=== PATIENT | female | born 1940 | race Caucasian/White ===

== ENCOUNTER 2019-09-08 07:36 | Emergency (ER) | payer MEDICARE, OTHER ==
[2019-09-08] MEDS: EPINEPHrine 1:10,000 1 MG/10 ML Syringe IVPUSH SCH ×3 (08:19→08:26)
--- NOTE | 2019-09-08 08:49 | EDM.PDOC ---
ED HPI GENERAL MEDICAL PROBLEM - General Chief Complaint: CPR in Progress Stated Complaint: FALL Time Seen by Provider: 09/08/19 08:14 Source of Information: Reports: EMS, EMS Notes Reviewed History Limitations: Reports: Other - History of Present Illness INITIAL COMMENTS - FREE TEXT/NARRATIVE: This patient presents to the ED via EMS with CPR in progress. On DOUG with Ulices airway in place. Call to EMS was for fall. No other information available. Onset: Today, Sudden ED ROS GENERAL - Review of Systems Review Of Systems: Unable To Obtain (CPR in progress) Reason Not Obtained: CPR in process ED EXAM, CPR - Physical Exam Exam: See Below Limited By: Unresponsive Eye Exam: Bilateral Eye: Abnormal Pupil (fixed, dilated) Ears: Normal External Exam, Normal Canal, Normal TMs Nose: Normal Inspection, Normal Mucosa, No Blood Throat/Mouth: Normal Inspection, Other (Ulices airway in place) Respiratory Chest: Other (bag-airway ventilations) Cardiovascular: CPR In Progress GI/Abdominal Exam: Soft, No Organomegaly, Distended, Other (absent bowel sounds) Extremities: Normal Inspection Skin Exam: Warm, Dry, Intact, Cool, Cyanosis, Mottled Course - Orders/Labs/Meds Labs: Laboratory Tests 09/08/19 09/08/19 Range/Units 08:32 08:32 WBC 11.2 H (4.0-11.0) K/uL RBC 3.96 (3.80-5.80) M/uL Hgb 12.2 (11.5-16.5) g/dL Hct 37.5 (37.0-47.0) % MCV 95 (76-96) fL MCH 30.8 (27.0-32.0) pg MCHC 32.5 (31.0-35.0) g/dL RDW 13.6 (11.0-16.0) % Plt Count 132 L (150-500) K/uL MPV 10.0 (6.0-10.0) fL Neut % (Auto) 36.5 L (45.0-70.0) % Lymph % (Auto) 54.3 H (20.0-40.0) % Hendricks % (Auto) 7.3 (3.0-10.0) % Eos % (Auto) 1.7 (1.0-5.0) % Baso % (Auto) 0.2 (0.0-0.5) % Neut # (Auto) 4.09 (2.00-7.50) K/uL Lymph # (Auto) 6.09 H (1.50-4.00) K/uL Hendricks # (Auto) 0.82 H (0.20-0.80) K/uL Eos # (Auto) 0.19 (0.04-0.40) K/uL Baso # (Auto) 0.02 (0.02-0.10) K/uL Sodium 139 (136-145) mmol/L Potassium 4.2 (3.5-5.1) mmol/L Chloride 105 (98-107) mmol/L Carbon Dioxide 20.0 L (21.0-32.0) mmol/L Anion Gap 18.2 H (5.0-15.0) mmol/L BUN 22 (8-26) mg/dL Creatinine 1.41 H (0.55-1.02) mg/dL Est Cr Clr Drug Dosing TNP Estimated GFR (MDRD) 36 L (>60) MLS/MIN BUN/Creatinine Ratio 15.6 (6-25) Glucose 218 H (74-100) mg/dL Calcium 8.3 L (8.5-10.1) mg/dL Troponin I 0.378 H* (0.000-0.060) ng/mL - Re-Assessments/Exams Free Text/Narrative Re-Assessment/Exam: 09/08/19 08:49 Patient arrives with CPR in progress. See Resuscitation Documentation. Time of : 827 Departure - Departure Time of Disposition: 08:28 Disposition: 20 Preliminary Cause of *Q: Cardiac Arrest Clinical Impression: Cardiac arrest - Discharge Information Referrals: PCP,None [Primary Care Provider] - Forms: ED Department Discharge Sepsis Event Note - Focused Exam Date Exam was Performed: 09/08/19 Time Exam was Performed: 11:32
== END 2019-09-08 08:28 | disposition expired ==
LOC: LB.ED 07:36
DX: I46.9 Cardiac arrest, cause unspecified (principal)
CPT/HCPCS: 36415; 43752; 80048; 84484; 85025; 92950; 99282; 99285; A0425; A0429; J0171